=== PATIENT | male | born 1955 | race Caucasian/White ===

== ENCOUNTER → 2023-12-07 15:00 | Outpatient (REF) | payer OTHER, SELFPAY | LOC: HWEVLT 15:00 | PROVIDERS: ATTENDING PHYSICIAN Radiology Diagnostic Radiology | DX: I83.893 Varicose veins of bilateral lower extremities with other complications (principal) | CPT/HCPCS: 93970 ==

== ENCOUNTER → 2024-04-10 08:00 | Outpatient (REF) | payer OTHER, SELFPAY | LOC: HWEVLT 08:00 | PROVIDERS: ATTENDING PHYSICIAN Radiology Diagnostic Radiology | DX: I83.892 Varicose veins of left lower extremity with other complications (principal) | CPT/HCPCS: 36478; C1769 ==

== ENCOUNTER → 2024-05-03 15:25 | Outpatient (REF) | payer OTHER, SELFPAY | LOC: HWEVLT 15:25 | PROVIDERS: ATTENDING PHYSICIAN Radiology Vascular & Interventional Radiology | DX: I83.891 Varicose veins of right lower extremity with other complications (principal) | CPT/HCPCS: 93971 ==

== ENCOUNTER 2024-10-29 20:59 | Emergency (ER) | payer OTHER, SELFPAY ==
[2024-10-29 21:03] VITALS: BP 169/98
--- NOTE | 2024-10-29 22:24 | ED.GENMED ---
History of Present Illness
General
Chief Complaint: Skin Surface Trauma
Source: patient
Exam Limitations: none
Time Seen by Provider: 10/29/24 22:08
Nursing documentation reviewed up to this point in time: agreed with
History of Present Illness
History of Present Illness:
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 He noted superficial laceration distal tip of his thumb that continued to bleed despite holding
pressure. He notes very mild local pain. No numbness or tingling. No nail involvement.
Previous Tdap April 2021.
No history of diabetes nor immunocompromise.
Injury occurred at his own work of business.
Past History
Past History
ED Past Medical History: HTN
ED Past Surgical History: Orthopedic
Social History
Tobacco: Non-smoker
Alcohol: Occasional
Personal: Single
Living: with family
Employment: Employed ([employer])
Family History
Family History: Other (Noncontributory)
Phy Exam
Physical Exam
Physical Exam:
PHYSICAL EXAMINATION:
General: 69-year-old gentleman appears his stated age, bright and alert, pleasant, appears in no acute distress. Bulky Alexx dressing over right thumb, dry and intact.
Neuro: alert and oriented. no focal neurological deficits
Psychiatric: well kept. interactive and cooperative
Musculoskeletal: [Right thumb has a superficial avulsion laceration at the distal tip, 1 cm x 4 mm. There is no active bleeding. Sensation intact. Rapid capillary refill. No nail nor nailbed involvement. Full range of
motion without difficulty nor pain.]
Course
Orders/Labs/Results
Orders:
Orders
10/29/24 21:07
CR Finger(s)/thumb Min 2 Vw Rt Urgent
Comment:
Reason For Exam: laceration
Vital Signs
Initial and Last Documented VS:
Initial Vital Signs
Temp Pulse Resp BP Pulse Ox
97.7 F 77 16 169/98 98
10/29/24 21:03 10/29/24 21:03 10/29/24 21:03 10/29/24 21:03 10/29/24 21:03
Last Documented Vital Signs
Temp Pulse Resp BP Pulse Ox
97.7 F 77 16 169/98 98
10/29/24 21:03 10/29/24 21:03 10/29/24 21:03 10/29/24 21:03 10/29/24 21:03
MDM/Problems Addressed
Differential Diagnosis Includes:
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
With local pressure dressing bleeding has subsided.
X-ray of right thumb reviewed by myself, no evidence of fracture nor foreign body.
To help prevent recurrent bleeding, Gelfoam has been placed over wound and over this a firm fingertip Band-Aid.
Patient has been provided with additional Gelfoam and a few fingertip Band-Aids for home care.
Routine wound care discussed.
He is up-to-date with Tdap.
Wound is superficial, no indication for oral antibiotics but recommend he initiate topical antibiotic such as bacitracin or Neosporin beginning tomorrow.
Follow-up with PCP as needed.
Return precautions discussed.
Chronic conditions affecting care: HTN
*Radiology
Radiology exam reviewed: preliminary read by ED provider (Right thumb x-ray shows no evidence of fracture. No foreign body.)
*Pulse Oximetry
Patient hypoxic: no
*Critical Care Note
Total Time (30-74mins, 75-104mins- exclusive of procedures): Not Applicable
ED Attending Note
-
Portions of this chart may have been created with voice recognition software.� Occasional wrong word or��sound alike� substitutions may have occurred due to the inherent limitations of voice recognition software.
Discharge Plan
Departure
Patient Disposition: Home (Routine Discharge)
Date of Disposition: 10/29/24
Time of Disposition: 22:24
Patient with high blood pressure during this ER visit?: No
Condition: Good
Discharge Problem:
meat cutting teacher injury R thumb
Instructions: Taking care of cuts, scrapes, and puncture wounds, Gelfoam
Prescriptions:
No Action
hydrocodone-acetaminophen 5 MG/500 MG tablet
1 tab PO .Q4-6HPRN PRN (Reason: PAIN) Qty: 20 0RF
Referrals:
James Ron, DO [Family Provider] - As needed
Interventions
Interventions:
*Risk Screen - Suicide Last Done: 10/29/24 21:03
*General Assessment Last Done: 10/29/24 21:03
*Neglect/Abuse Screening Last Done: 10/29/24 21:03
*ED- Fall Risk Assessment Last Done: 10/29/24 21:07
*ED COVID-19 Vaccine History Last Done: 10/29/24 21:07
*Nursing Disposition Last Done: 10/29/24 22:31
ED-Skin Assessment Last Done: 10/29/24 21:18
Discharge Date and Time
Discharge Date/Time: 10/29/24 22:32
Print Language: MALAWIAN
== END 2024-10-29 22:32 | disposition home or self-care (01) ==
LOC: EMR 20:59
PROVIDERS: EMERGENCY PHYSICIAN Emergency Medicine; FAMILY PHYSICIAN Family Medicine
DX: S61.011A Laceration without foreign body of right thumb without damage to nail, initial encounter (principal); W29.0XXA Contact with powered kitchen appliance, initial encounter; I10 Essential (primary) hypertension
CPT/HCPCS: 99283; 73140